=== PATIENT | female | born 1980 | race Two or more races ===

== ENCOUNTER → 2025-01-11 | Day surgery (SDC) | payer MEDICAID ==
[2025-01-05 10:58] LABS: Urine Bacteria None Seen /hpf (None Seen)
[2025-01-05 11:12] LABS: Basophils # (auto) 0 10 ^3/uL (0-0.2); Basophils % (auto) 0.6 % (0.0-2.0); Eosinophils # (auto) 0 10 ^3/uL (0-0.8); Eosinophils % (auto) 0.9 % (0.0-7.0); Hematocrit 40.2 % (36.0-46.0); Hemoglobin 13.2 g/dL (12.2-16.2); Lymphocytes # (auto) 1.8 10 ^3/uL (0.4-5.4); Lymphocytes % (auto) 35.3 % (10.0-50.0); Mean Corpuscular Hemoglobin 29.5 pg (28.0-32.0); Mean Corpuscular Hgb Conc. 32.9 g/dL (32.0-36.0); Mean Corpuscular Volume 89.5 fL (80.0-100.0); Monocytes # (auto) 0.4 10 ^3/uL (0-1.3); Monocytes % (auto) 7.5 % (0.0-12.0); Neutrophils # (auto) 2.8 10 ^3/uL (1.6-8.6); Neutrophils % (auto) 55.7 % (37.0-80.0); Platelet Count (auto) 196 10^3/uL (140-450); Red Blood Cells 4.49 10^6/uL (4.0-5.20); Red Cell Distribution Width 13.4 % (11.8-14.3); Urine Blood TRACE /uL (Negative); Urine Clarity Clear (Clear); Urine Color Colorless (Yellow); Urine Protein, UAD Negative (Negative); Urine Squamous Epithelial Cell FEW /hpf (<5); Urine Urobilinogen Normal (Negative); Urine WBC < 1 /HPF (0-5)
[2025-01-05 11:25] LABS: INR 0.93 (0.9-1.15); Partial Thromboplastin Time 28.9 SEC (24.5-34.5); Prothrombin Time 9.9 sec (9.3-11.8)
[2025-01-05 11:55] LABS: Alanine Aminotransferase 25 U/L (7-40); Albumin 4.7 g/dL (3.2-4.8); Alkaline Phosphatase 78 U/L (46-116); Anion Gap 2 (5-15); Aspartate Aminotransferase 19 U/L (13-40); BUN/Creatinine Ratio 22.2 (10.0-20.0); Bilirubin, Total 0.6 mg/dL (0.2-1.0); Blood Urea Nitrogen 14 mg/dL (9-23); Calcium 9.8 mg/dL (8.7-10.4); Carbon Dioxide 28 mmol/L (20-31); Glucose 93 mg/dL (74-106); Potassium 4.6 mmol/L (3.5-5.1); Sodium 138 mmol/L (136-145); Total Protein 7.6 g/dL (5.7-8.2)
[2025-01-05 12:00] LABS: Chloride 108 mmol/L (98-107)
[~2025-01-11] VITALS: Ht 149.9 cm; Wt 51.3 kg
[~2025-01-11] MED LIST: ACETAMINOPHEN IV 1000 MG/100ML (10MG/ML) IV PRN; HYDROmorphone HCL 2 MG/ML VL/or syr IV PRN; MEPERIDINE HCL (25 MG/ML) 1ML VIAL IV PRN; ONDANSETRON HCL 4 MG/2 ML VIAL IV ONE; ceFAZolin 2 GM/D5W100ml 100 ML IV ONE
--- NOTE | 2025-01-11 11:37 | DVHOP2 ---
Operative Report - 2 Report Details Date: 01/11/25 Preop Diagnosis: 1. Left foot bunion 2. Left foot pain Postop Diagnosis: Same as preop Surgeon: Aicha Jean Baptiste MD Anesthesiologist: See anesthesia Anesthesia: General Implant: 0.062 K-wire Consent: The patient was informed of the risks and benefits of the procedure. These include but are not limited to complications of anesthesia, postoperative infection, incomplete relief of symptoms, recurrence of symptoms, damage to blood vessels, nerves and tendons, deep venous thrombosis, pulmonary embolism and possible need for repeat surgery in the future. Complications: None Estimated Blood Loss: Minimal Fluids: See anesthesia Findings: Consistent with diagnosis Indications for Surgery: Worsening left foot pain Name of Procedure Performed 1. Left foot MIS bunionectomy (53204) 2. Left foot bone spur excision first metatarsal (06925) Procedure Details Procedure Details: PRE-PROCEDURE INFORMATION: In the pre-op holding area, the extremity to be operated on was clearly marked and the patient verified correct laterality of the marking. The patient was transferred to the OR table and placed in a supine position. A timeout was performed in which identification of the correct patient, procedure, location, and materials was done. The left foot and leg were prepped and draped in normal sterile fashion. DESCRIPTION OF PROCEDURE: Attention was directed to the right 1st metatarsophalangeal joint where a stab incision was made at the neck of the 1st metatarsal. Care was taken to avoid damage the neurovascular and tendinous structures. Using intraoperative fluoroscopy and an MIS per, an osteotomy was then made at the neck of the 1st metatarsal. The metatarsal head was then shifted into position aligning the sesamoid bones over the fragment. Using the MIS bur, the bone spur was excised in its entirety. Using a 6 2 K-wire, the wire was then driven down the shaft of the 1st metatarsal to hold the head in place until the osteotomy has healed. Fluoroscopy verified proper placement of hardware as well as correction of previous bunion deformity. All surgical wounds were irrigated copiously with saline and closed in layers with the aforementioned suture material. A dry sterile dressing was placed on the surgical extremity. The patient was placed in a postop shoe POSTOPERATIVE INFORMATION: The patient tolerated the above noted procedure and anesthesia well and was transferred to the PACU with vital signs stable, and vascular status intact with capillary refill intact to all digits. Postoperative instructions reviewed in detail with the patient with written instructions provided. Patient will return to clinic in approximately 10-14 days for first postoperative visit. Patient has the number of the clinic and was instructed to call prior to that time should any problems, questions, or concerns arise. Condition Good Disposition Home AICHA JEAN BAPTISTE DPM Jan 11, 2025 11:37
[2025-01-11 11:39] VITALS: PULSE 66; RESP 22; TEMP 97; O2SAT 100
[2025-01-11 12:24] VITALS: BP 133/71; PULSE 79; RESP 12; O2SAT 100
== END | disposition home or self-care (01) ==
LOC: SUR 10:29
PROVIDERS: ATTEND Podiatrist
DX: M21.612 Bunion of left foot (principal)
CPT/HCPCS: 28296; 36415; 80053; 81001; 84702; 85025; 85610; 85730; C1713

== ENCOUNTER 2025-01-16 09:42 | Emergency (ER) | payer MEDICAID ==
[~2025-01-16] VITALS: Ht 149.9 cm; Wt 51.6 kg
--- NOTE | 2025-01-16 10:34 | ED.PDOC ---
History of Present Illness HPI Comments 45 year old female presents to the ED with a chief complaint of LT foot wound check onset today. Patient states she had a LT foot surgery done on 01/11/25, at [facility]. Patient states she noticed a screw popped out this morning, makes it painful to walk. Patient called surgeon, was told by nurse to come to ED. Denies any PMHx as well as fall, injury, chest pain, shortness of breath, dizziness, headache, nausea, vomiting, diarrhea, fever, chills. No other symptoms or modifying factors present at this time. Chief Complaint: Wound Check Time Seen by MD: 10:25 Primary Care Provider: han Bolivar Notes: Medications, Allergies Allergies: Coded Allergies: NO KNOWN ALLERGIES (Unverified , 01/05/25) Information Source: Patient Mode of Arrival: Ambulatory Severity: Moderate Timing: Hours Duration: Since onset Prehospital treatment: None Past Medical History PAST MEDICAL HISTORY: Denies Surgical History (Other): LT foot surgery PROPERTY DISPOSAL OFFICER History: No Pertinent PROPERTY DISPOSAL OFFICER History Family History Family History: Reviewed,noncontributory to illness, No family hx of Cancer, No family hx of DM, No family hx of Heart rashida, No family hx of HTN, No family hx ofKidney rashida, No family hx of Liver rashida, No family hx of Lung rashida, No family hx of Stroke Social History Smoker: Non-Smoker Alcohol: Denies ETOH Use Drugs: Denies Drug Use Lives In: Home Constitutional: denies: chills, diaphoresis, fatigue, fever, malaise, sweats, weakness, others EENTM: denies: blurred vision, double vision, ear bleeding, ear discharge, ear drainage, ear pain, ear ringing, eye pain, eye redness, hearing loss, mouth pain, mouth swelling, nasal discharge, nose bleeding, nose congestion, nose pain, photophobia, tearing, throat pain, throat swelling, voice changes, others Respiratory: denies: cough, hemoptysis, orthopnea, SOB at rest, shortness of breath, SOB with excertion, stridor, wheezing, others Cardiovascular: denies: chest pain, dizzy spells, diaphoresis, Dyspnea on exertion, edema, irregular heart beat, left arm pain, lightheadedness, palpitations, PND, syncope, others Gastrointestinal: denies: abdomen distended, abdominal pain, blood streaked bowels, constipated, diarrhea, dysphagia, difficulty swallowing, hematemesis, melena, nausea, poor appetite, poor fluid intake, rectal bleeding, rectal pain, vomiting, others Genitourinary: denies: abnormal vagina bleeding, burning, dyspareunia, dysuria, flank pain, frequency, hematuria, incontinence, pain, , vagina discharge, urgency, others Neurological: denies: dizziness, fainting, headache, left sided numbness, left sided weakness, numbness, paresthesia, pre-existing deficit, right sided numbness, right sided weakness, seizure, speech problems, tingling, tremors, weakness, others Musculoskeletal: reports: others (LT foot wound check); denies: back pain, gout, joint pain, joint swelling, muscle pain, muscle stiffness, neck pain Integumetry: denies: bruises, change in color, change in hair/nails, dryness, laceration, lesions, lumps, rash, wounds, others Allergic/Immunocompromised: denies: Difficulty Healing, Frequent Infections, Hives, Itching, others Hematologic/Lymphatic: denies: anemia, blood clots, easy bleeding, easy bruising, swollen glands, others Endocrine: denies: excessive hunger, excessive sweating, excessive thirst, excessive urination, flushing, intolerance to cold, intolerance to heat, unexplained weight gain, unexplained weight loss, others Psychiatric: denies: anxiety, bipolar disorder, depression, hopeless, panic disorder, schizophrenia, sleepless, suicidal, others All Other Systems: Reviewed and Negative Physical Exam General Appearance: Moderate Distress, Normal HEENT: Normal ENT Inspection, Pharynx Normal, TMs Normal Neck: Full Range of Motion, Non-Tender, Normal, Normal Inspection Respiratory: Chest Non-Tender, Lungs Clear, No Accessory Muscle Use, No Respiratory Distress, Normal Breath Sounds Cardiovascular: No Edema, No JVD, No Murmur, No Gallop, Normal Peripheral Pulses, Regular Rate/Rhythm Breast Exam: Deferred Gastrointestinal: No Organomegaly, Non Tender, No Pulsatile Mass, Normal Bowel Sounds, Soft Genitalia: Deferred Pelvic: Deferred Rectal: Deferred Extremities: No calf tenderness, Normal capillary refill, Normal inspection, Normal range of motion, Non-tender, No pedal edema Musculoskeletal : Apperance: Normal 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 Was a procedure done?: No Differential Dx Considerations may include: Postop Muscle strain X-Ray, Labs, Meds, VS Vital Signs Date Time Temp Pulse Resp B/P (MAP) Pulse Ox O2 Delivery O2 Flow Rate FiO2 01/16/25 10:13 Room Air* 0 21 01/16/25 10:10 98.0 73 17 134/89 (104) 99 98.0 01/16/25 09:49 98.6 79 16 134/42 (72) 99 98.6 Patient alert. Has a wound in the left foot from surgery. Dressing intact. Vitals stable. No sign of any infection. Good pulses. Good skin color. Podiatric consultation. Imaging was not done because physical examination was pristine. Explained to the patient. Was told to follow up with her primary care physician. Was told to come back if there is any problem. Time of 1ST Reevaluation: 10:55 Reevaluation 1ST: Improved Patient Education/Counseling: Diagnosis, Treatment, Prognosis Family Education/Counseling: No Family Present Departure 1 Departure Time of Disposition: 10:37 Impression: Primary Impression: Postop check Disposition: 01 HOME / SELF CARE / HOMELESS Condition: Good Discharged With: Self Critical Care Note Critical Care Time?: No Stability Stability form required: No Heart Score Heart Score: Heart Score Response (Comments) Value History N/A 0 EKG N/A 0 Age N/A 0 Risk Factors N/A 0 Troponin N/A 0 Total 0 I personally scribed for CHICO RODRIGUEZ MD ([email or web address]) on 01/16/25 at 10:34. Electronically submitted by Charissa Vásquez ([email or web address]). CHICO RODRIGUEZ MD Jan 16, 2025 10:34
--- NOTE | 2025-01-16 15:06 | DVHINCON2 ---
Date Seen: Jan 16, 2025 Reason for Consultation Left foot postop bunionectomy History of Present Illness Patient is a 45-year-old female postop bunionectomy approximately 1 week who presents for worsening pain. Patient also states the pain is following up. Patient has kept the dressings clean dry and intact. Patient states the pain is about a 4/10. Patient denies any recent nausea, vomiting, fevers, chills. Patient denies any other pedal complaints at this time. Past Medical History See H&P Past Surgical History See H&P Allergies: Coded Allergies: NO KNOWN ALLERGIES (Unverified , 01/05/25) Vital Signs Vital Signs Date Time Temp Pulse Resp B/P (MAP) Pulse Ox O2 Delivery O2 Flow Rate FiO2 01/16/25 12:29 67 16 125/73 (90) 99 01/16/25 10:13 Room Air* 0 21 01/16/25 10:10 98.0 98.0 Physical Exam DERMATOLOGIC EXAM: - Skin is warm, smooth, and supple bilaterally. - No erythema noted to the foot and ankle bilaterally. - No hyperkeratotic lesions noted bilaterally. - No other discolorations, lesions, or open wounds noted bilaterally. - sutures intact VASCULAR EXAM: - DP and PT pulses are palpable bilaterally. 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 - No edema noted to the leg, foot, and ankle bilaterally. NEUROLOGIC EXAM: - Normal light touch sensation to the superficial peroneal, deep peroneal, sural, saphenous, and tibial nerve branches. - Protective sensation is intact as tested with a 5.07 10g [place] Monofilament bilaterally. - No paresthesia noted on percussion of Tibial Nerve in the Tarsal Tunnel bilaterally. MUSCULOSKELETAL EXAM: - There is tenderness with - Muscle strength is 5/5 and active motion is pain-free and symmetrical bilaterally with plantarflexion, dorsiflexion, abduction, adduction, inversion, and eversion against resistance. - No pain or crepitus with passive range of motion bilaterally to all major pedal joints. Problems(with codes): (1) Postop check Plan/Recommendation ASSESSMENT: Patient is a 45-year-old seen in the ER for postop from a left foot bunionectomy PLAN: - The patients chart was reviewed, clinical findings were discussed with the patient, the etiologies of the conditions were discussed in detail, and a treatment plan was agreed to at this time, with both oral and written instructions provided. - Educated patient on icing technique for pain and inflammation. Patient is to apply ice to the affected area in 20 minutes intervals. Patient understands and will do so at least 2 times per day. Patient was advised to take NSAIDs for anti-inflammatory effect as needed. - the K-wire was removed as it was partially pulling at this point - re-dressed with Xeroform gauze 4x4s a seen 1 in [facility] - patient can weightbear as tolerated postoperative shoe - patient will follow up with me in 1 week All questions were answered and concerns addressed to the patient's satisfaction. The patient was given the phone number to the clinic and was told how to make contact with the clinic should any concerns or questions arise. Patient understands that if any questions or concerns arise prior to the next appointment, we should be contacted immediately. FOLLOW-UP: Patient will follow up with me in 1 week Plan discussed with: Patient Date of Service: Jan 16, 2025 Billing Provider: AICHA JEAN BAPTISTE DPM Common Visit Codes: [id number] INP/OBS CARE (HIGH) AICHA JEAN BAPTISTE DPM Jan 16, 2025 15:05
[2025-01-16 15:18] VITALS: BP 122/79; PULSE 74; RESP 12; TEMP 98.1; O2SAT 98
== END 2025-01-16 15:19 | disposition home or self-care (01) ==
LOC: ER 09:42
DX: M79.672 Pain in left foot (principal); Z48.89 Encounter for other specified surgical aftercare